=== PATIENT | female | born 1980 | race Caucasian/White ===

== ENCOUNTER 2022-03-11 17:28 | Emergency (ER) | payer MEDICAID ==
[~2022-03-11] VITALS: Ht 162.6 cm; Wt 82.0 kg
[2022-03-11] MEDS ORDERED: SODIUM CHLORIDE 0.9% 1,000 ML IV ONE (18:00)
[2022-03-11 19:19] LABS: BASOPHILS % 0.3 % (0.0-2.0); HEMATOCRIT. 41.9 % (36.0-48.0); HEMOGLOBIN. 13.8 g/dL (12.0-16.0); LYMPHOCYTES % 20.3 % (20.0-50.0); MEAN CORPUSCULAR HEMOGLOBIN 29.2 pg (28.0-32.0); MEAN CORPUSCULAR VOLUME 88.8 fL (81.0-99.0); MEAN PLATELET VOLUME 11.2 fl (7.4-10.4); MONOCYTES % 7.3 % (2.0-8.0); NEUTROPHILS % 71.1 % (40.0-76.0); PLATELET 192 x1000/uL (130-400); RED BLOOD CELL COUNT 4.71 mill/uL (4.2-5.4); RED CELL DISTRIBUTION WIDTH 13.6 % (11.6-14.6)
[2022-03-11 19:26] LABS: CHLORIDE 104 mEq/L (98-107)
[2022-03-11 19:35] LABS: ETHANOL BLOOD < 10 mg/dL
[2022-03-11 21:13] LABS: CLARITY URINE CLEAR (CLEAR); COLOR URINE YELLOW (YELLOW); KETONES URINE 1+ (NEGATIVE); LEUKOCYTE ESTERASE URINE TRACE (NEGATIVE); NITRITE URINE NEGATIVE (NEGATIVE); OCCULT BLOOD URINE NEGATIVE (NEGATIVE); PROTEIN URINE NEGATIVE (NEGATIVE); SPECIFIC GRAVITY URINE 1.008 (1.005-1.030); UROBILINOGEN URINE 0.2 E.U./dL (0.2-1.0)
[2022-03-11 21:27] LABS: *AMPHETAMINES SCREEN URINE NEGATIVE (NEGATIVE); *BARBITURATES SCREEN URINE NEGATIVE (NEGATIVE); *BENZODIAZEPINES SCREEN URINE NEGATIVE (NEGATIVE); *COCAINE SCREEN URINE NEGATIVE (NEGATIVE); CANNABINOID URINE SCREEN NEGATIVE (NEGATIVE); METHADONE URINE SCREEN NEGATIVE (NEGATIVE); OPIATES URINE SCREEN NEGATIVE (NEGATIVE); PHENCYCLIDINE URINE SCREEN NEGATIVE (NEGATIVE)
[2022-03-12] MEDS: ARIPIPRAZOLE 5MG TABLET PO SCH (11:00)
[2022-03-12] MEDS: LAMOTRIGINE 25MG TABLET PO SCH (12:05)
[2022-03-12] MEDS: QUETIAPINE FUMARATE 50MG TABLET PO SCH (21:46)
[2022-03-13] MEDS: LAMOTRIGINE 25MG TABLET PO SCH ×2 (09:27→22:14)
[2022-03-13] MEDS: ARIPIPRAZOLE 5MG TABLET PO SCH (09:27)
[2022-03-13] MEDS: QUETIAPINE FUMARATE 50MG TABLET PO SCH (22:14)
[2022-03-14] MEDS: LAMOTRIGINE 25MG TABLET PO SCH ×2 (09:18→21:59)
[2022-03-14] MEDS: ARIPIPRAZOLE 5MG TABLET PO SCH (09:18)
[2022-03-14] MEDS: QUETIAPINE FUMARATE 50MG TABLET PO SCH (21:00)
[2022-03-15] MEDS: LAMOTRIGINE 25MG TABLET PO SCH ×2 (08:54→22:48)
[2022-03-15] MEDS: ARIPIPRAZOLE 5MG TABLET PO SCH (08:54)
[2022-03-15] MEDS: QUETIAPINE FUMARATE 50MG TABLET PO SCH (22:48)
[2022-03-16 08:00] VITALS: BP 130/90
== END 2022-03-16 11:03 | disposition still patient (30) ==
LOC: ER 17:28
DX: T43.592A Poisoning by other antipsychotics and neuroleptics, intentional self-harm, initial encounter (principal); F31.9 Bipolar disorder, unspecified; F10.10 Alcohol abuse, uncomplicated; Y90.0 Blood alcohol level of less than 20 mg/100 ml; G47.9 Sleep disorder, unspecified; Z98.890 Other specified postprocedural states; R00.1 Bradycardia, unspecified; Z75.1 Person awaiting admission to adequate facility elsewhere; Z20.822 Contact with and (suspected) exposure to COVID-19; Y92.018 Other place in single-family (private) house as the place of occurrence of the external cause
CPT/HCPCS: 36415; 80053; 80305; 80307; 80320; 80329; 81003; 81025; 84484; 85025; 87426; 93005; 96360; 99285; C9803; J7030; U0003; U0005; Z7610; G0480